=== PATIENT | female | born 1990 | race Two or more races ===

== ENCOUNTER 2024-10-17 10:54 | Emergency (ER) | payer SELFPAY ==
[2024-10-17 11:19] VITALS: BP 149/93; PULSE 62; RESP 18; TEMP 37; O2SAT 98; BMI 28.9
--- NOTE | 2024-10-17 11:21 | EKG_ITS ---
[facility] Test Date: 2024-10-17 Pat Name: DHARA DOLL Department: Room: - Gender: Female [employer]: : 1990 Requested By: Juliette Puentes ([facility]) Shawna Order Number: [id number] Reading MD: Juliette Puentes ([facility]) Shawna Measurements Intervals [place] Rate: 57 P: 36 NH: 139 QRS: 64 QRSD: 96 T: 44 QT: 417 QTc: 408 Interpretive Statements SINUS BRADYCARDIA No previous ECG available for comparison /store/S0/[id number].pdf
--- NOTE | 2024-10-17 11:26 | PD.EDWEAK ---
ED Weakness RME/HPI General Chief complaint: Weakness Stated complaint: Weak, light headed, cold sweats Time Seen by Provider: 10/17/24 11:13 Source: patient Arrival date/time: 10/17/24 10:54 This is a 34-year-old female who presents to the emergency department with complaints of generalized weakness, chest pain and a headache. Patient reports she was at work she works for the [employer], when her symptoms began. Patient reports she has had increased stress at work unsure of her symptoms are related wanted to get a medical exam today. Patient did not attempt any interventions or take any OTC medications prior to ED visit. No fever, cough, shortness of breath, chills, abdominal pain, diarrhea, dysuria, hematuria, hematochezia, melena, focal weakness, fall, blunt trauma, loss of consciousness, incontinence. Mode of arrival: ambulatory Related Data Allergies Allergy/AdvReac Type Severity Reaction Status Date / Time No Known Allergies Allergy Verified 10/17/24 10:59 Review of Systems Review of Systems Systems Reviewed: All systems reviewed, normal except as documented Narrative Review of Systems: Gen: No fever, no chills, no weight loss EYES: No discharge, no visual changes, no pain HEENT: No ear pain, no congestion, no sore throat PULM: No shortness of breath, no cough, no congestion CV: +chest pain, no dyspnea on exertion, no palpitations GI: No nausea, no vomiting, no diarrhea, no pain, no constipation : No frequency, no urgency,? no dysuria Musc/skel: No joint pain, no back pain Skin: No rash? Psyc: No hallucinations, no depression Heme/Lymph: No easy bleeding or bruising tendencies Neuro: No weakness, no headache ED Exam Narrative Physical exam: General: Sittiing in Exam table in no acute distress, answering questions appropriately HENT: normocephalic, atraumatic, EOMI, PERRLA, moist mucous membranes Chest: chest wall is nontender Cardiac: regular rate and rhythm, normal S1 and S2, no murmurs, rubs, or gallops, capillary refill ?2 seconds Pulmonary: clear to auscultation bilaterally, no wheezing, crackles, or rhonchi Abdominal: active bowel sounds, soft, nontender, nondistended Neuro: A&OX3, CN II-XII intact, sensation grossly intact bilaterally in UE and LE. Skin: no rashes, no ecchymosis Ext: no lower extremity edema Course Quality Measures none Orders Category Date Time Status EKG (ED ONLY) *Do not use* NOW Care 10/17/24 11:21 Completed EKG (ED Only) Stat Exams 10/17/24 11:21 Draft BNP [B-Type Natriuretic Peptide] Stat Lab 10/17/24 11:40 Completed CBC Stat Lab 10/17/24 11:40 Completed Comprehensive Metabolic Panel Stat Lab 10/17/24 11:40 Completed HCG Qualitative,Urine Stat Lab 10/17/24 11:51 Completed Lipase Stat Lab 10/17/24 11:40 Completed Troponin I Stat Lab 10/17/24 11:40 Completed Urinalysis Stat Lab 10/17/24 11:51 Completed Vital Signs Vital signs: Vital Signs Temperature 98.6 F 10/17/24 11:19 Pulse Rate 62 10/17/24 11:19 Respiratory Rate 18 10/17/24 11:19 Blood Pressure 149/93 H 10/17/24 11:19 Pulse Oximetry (%) 98 10/17/24 11:19 Oxygen Delivery Method Room Air 10/17/24 11:19 Weakness MDM Narrative MDM Narrative:: 34-year-old female with no significant past medical history presents to the emergency department with complaints of chest pain, generalized fatigue. 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 Patient labs are reassuring no leukocytosis no bandemia no anemia no electrolyte imbalance. EKG medically necessary in the evaluation of chest pain and interpreted by me and ED physician at the time of patient evaluation. Normal sinus bradycardia rhythm with a rate of 57. VA and QT intervals within normal limits. No ST/T changes. No STEMI. Interpretation: Normal EKG Troponin negative, patient's vital signs stable Symptoms have improved. Will discharge patient home with close follow up with PMD. Patient instructed to come back to ER if any worsening symptoms. Patient data External records reviewed:: [facility] previous records Clinical information provided by:: patient Social determinants that could affect healthcare access:: none Patient has the following chronic illnesses:: No How is presenting disease/condition affected by chronic disease/condition?: no chronic disease Evaluation data The following diagnostics were reviewed and interpreted by me:: lab results, radiology exam(s) and EKG tracing(s) Lab and/or radiology exams considered but not ordered:: No Interpretation Summary: See above Medications / Prescriptions Medications or Prescriptions considered but not ordered:: No Medication administrations:: No Consultations Consultation(s) initiated? (list below): No Diagnosis Weakness Differential Diagnosis: acute myocardial infarction, anemia, hypoglycemia, hypothyroidism, rhabdomyolysis, sepsis and dehydration Most likely diagnosis given after review of the tests above:: Stress related, chest pain Admission Indicated Admission indicated?: not indicated Admission Request Was there a request for admission?: No Disposition Plan Disposition Plan: Discharge Discharge Attestation Discharge Attestation: The patient and all family members were given an opportunity to ask questions and understood the discharge instructions. Discharge instructions specifically effects, indications for sooner follow up or return to the emergency department, and the expected course of current diagnosis. Patient condition: Stable Discharge Plan Plan Patient Disposition: HOME (Self Care) Patient condition on transfer: Stable Problem List Clinical Impression: Atypical chest pain, Situational stress Patient/Caregiver Discharge Instructions Discharge Activity: activity as tolerated Education Materials: Stress Relief: Relaxation, ED Pain, Acute, Uncertain Cause Additional Instructions: Your labs were reassuring. EKG. Please make sure you follow-up with your primary doctor on Sunday for follow-up care Please attempt to reduce stress. Fine relaxing methods yoga walking. Return to the emergency department this any worsening symptoms or change in condition. Print Language: Fijian Stand Alone Forms: Vesna Award Info., Patient Portal Info Letter TANYA/BUSTER Supervising Physician TANYA/BUSTER Supervising Physician: Dr. Horan
[2024-10-17 11:58] LABS: Collection Type, Urine Clean Catch; RBC,Urine 0 /hpf (0-3)
[2024-10-17 12:06] LABS: Basophils # (Auto) 0.1 Thou/mm3 (0.0-0.2); Basophils % (Auto) 1 % (0-2.5); Eosinophils # (Auto) 0.1 Thou/mm3 (0.0-0.5); Eosinophils % (Auto) 1 % (0-10); Hematocrit 42.8 % (36.0-46.0); Hemoglobin 14.3 g/dL (12.0-16.0); Immature Granulocytes % (Auto) 0 % (0-0); Immature Granulocytes Auto 0.01 Thou/mm3 (0.00-0.00); Lymphocytes % (Auto) 26 % (10-50); Mean Corpuscular HGB Conc 33.4 g/dl (31.0-37.0); Mean Corpuscular Hemoglobin 30.9 pg (25.0-35.0); Mean Corpuscular Volume 92 fL (80-100); Monocytes # (Auto) 0.6 Thou/mm3 (0.0-0.8); Monocytes % (Auto) 8 % (0-12); Neutrophils # (Auto) 4.8 Thou/mm3 (1.8-7.7); Neutrophils % (Auto) 64 % (37-80); Nucleated Red Blood Cell % 0 /100 WBC (0); Platelet Count 241 Thou/mm3 (140-440); RDW Standard Deviation 43.5 fL (36.4-46.3); Red Blood Count 4.63 Miln/mm3 (4.00-5.20); White Blood Count 7.5 Thou/mm3 (3.6-11.0)
[2024-10-17 12:12] LABS: HCG Qualitative,Urine Negative
[2024-10-17 12:21] LABS: B-Type Natriuretic Peptide 33 pg/mL (0-100)
[2024-10-17 12:22] LABS: Alanine Aminotransferase 10 U/L (10-49); Albumin, Serum 4.8 gm/dL (3.5-5.0); Albumin/Globulin Ratio 1.5 (1.2-2.2); Alkaline Phosphatase 45 U/L (46-116); Anion Gap 5 (7-16); Aspartate Amino Transferase 18 U/L (0-34); BUN/Creatinine Ratio 13 Ratio (12-20); Bilirubin,Total 0.4 mg/dL (0.3-1.2); Blood Urea Nitrogen 10 mg/dL (9-23); Calcium 9.8 mg/dL (8.3-10.6); Calcium (Corrected) 9.8 mg/dL (8.5-10.1); Carbon Dioxide 28.6 mMol/L (20.0-31.0); Chloride 105 mMol/L (98-107); Creatinine (Component) 0.8 mg/dL (0.6-1.3); Estimated Creatinine Clearance 105.5 mL/min (>60); Globulin 3.1 gm/dL (2.3-3.5); Glucose 97 mg/dL (74-106); Lipase 41 U/L (12-53); Osmolality,Calculated 276 (275-295); Potassium 4.2 mMol/L (3.4-5.1); Sodium 139 mMol/L (136-145); Total Protein 7.9 gm/dL (5.7-8.2); Troponin I < 0.002 ng/mL (0.0-0.045); eGFR > 60 See Note
[2024-10-17 12:30] LABS: Bacteria,Urine 4+; Bilirubin,Urine Negative (Negative); Blood,Urine Negative (Negative); Clarity,Urine Clear (Clear/Hazy); Color,Urine Lt-Yellow (Lt Yel-Yel); Glucose, Urine Negative (Negative); Ketones,Urine Negative (Negative); Leukocyte Esterase,Urine Negative (Negative); Nitrite,Urine Positive (Negative); Protein,Urine Negative (Neg - Trace); Specific Gravity,Urine 1.017 (1.001-1.035); Squamous Epithelial Cell,Urine 6 /hpf (0-5); Urobilinogen,Urine Negative mg/dL (0.0-1.0); WBC,Urine 10 /hpf (0-5)
--- NOTE | 2024-10-17 12:40 | PC.NURSE ---
CALLED PT IN LOBBY NO ANSWER
--- NOTE | 2024-10-17 12:47 | PC.NURSE ---
CALLED FROM [facility]OBBY AND NO ANSWER
== END 2024-10-17 13:04 | disposition home or self-care (01) ==
LOC: SERX 13:32
PROVIDERS: Nurse Practitioner Primary Care; Emergency Provider Emergency Medicine
DX: R07.89 Other chest pain (principal); Z73.3 Stress, not elsewhere classified
CPT/HCPCS: 36415; 80053; 81001; 81025; 83690; 83880; 84484; 85025; 93005; 99283